=== PATIENT | male | born 1945 | race Caucasian/White ===

== ENCOUNTER 2017-08-27 06:29 | Inpatient (IN) ==
[2017-08-21 14:38] LABS: Appearance,Urine CLEAR; Bilirubin,Urine NEG (NEG); Color,Urine YELLOW; Glucose,Urine (UA) NEGATIVE (NEG); Leukocyte Esterase,Urine NEG /uL (NEG); Nitrate,Urine NEG (NEG); Protein,Urine NEG (NEG); Specific Gravity,Urine 1.021 (1.000-1.035); Urine Blood NEG mg/dL (<0.03)
[2017-08-21 17:43] LABS: Basophils # (Auto) 0 K/mcL (0.0-0.3); Basophils % (Auto) 0.6 % (0.0-2.0); Blood Urea Nitrogen 20 mg/dl (8-23); Eosinophils # (Auto) 0.1 K/mcL (0.0-0.7); Eosinophils % (Auto) 1.6 % (0.0-7.0); Granulocytes % (Auto) 60.4 % (38.0-78.0); Lymphocytes # (Auto) 1.2 K/mcL (1.5-4.8); Lymphocytes % (Auto) 27.1 % (15.5-49.0); Mean Cell Volume 93.5 fL (80.0-100.0); Mean Corpuscular HGB Conc 33.5 g/dL (31.0-36.0); Mean Corpuscular Hemoglobin 31.3 pg (26.0-34.0); Monocytes # (Auto) 0.5 K/mcL (0.1-0.9); Monocytes % (Auto) 10.3 % (1.0-12.0); Platelet Count 222 K/mcL (140-440); RBC 5.02 M/mcL (4.50-5.90); Red Cell Distribution Width 13.6 % (11.5-14.5)
[~2017-08-27 06:29] MED LIST: CELECOXIB 200 MG CAPSULE PO SCH; PREGABALIN 75 MG CAPSULE PO SCH; ceFAZolin 1 GM VIAL IV SCH; oxyCODONE 10 MG TAB.ER.12H PO SCH
[2017-08-27] MEDS ORDERED: GENTAMICIN SULFATE 800 MG/20 ML VIAL IR ONE (09:02)
--- NOTE | 2017-08-27 10:11 | Brief Operative Note ---
Date of procedure: 08/27/17 Pre-op diagnosis: right shoulder oa, biceps tendonitis Post-op diagnosis: same Procedure: right total shoulder arthroplasty, biceps tenodesis Grafts/Implants: Yes Anesthesia: GETA Complications: none Surgeon: Lefty Yin Cutter Apprentice Hand: Eleonora Cavazos Estimated blood loss (cc): 150 Specimens Removed/Pathology: none sent Condition: stable Disposition: PACU
--- NOTE | 2017-08-27 10:12 | Discharge Summary ---
Ortho Discharge - TSA - Patient Instructions Diet: Regular Diet Activity: non weight bearing Total Shoulder Protocol: Leave immobilizer in place except for bathing and ROM. Abduction pillow. Continue to wear sling until seen by physician. Codman Pendulum : These exercises use momentum produced by your body to move your shoulder joint. Bend your knees and shift your weight to your front leg, then back, allowing your arm to swing in the same directions. Using the same technique, alternately shift your weight between your right and left legs, allowing your arm to swing from side to side. These exercises are also performed in counterclockwise and clockwise circular motions. Typically these exercises are performed several times per day, for a set number repetitions or minutes, such as 20 times in a row or 5 minutes at a time. Dressing Care: May shower in 2 days - Follow Up Plan Follow Up Appointments: Eleonora Cavazos PA-C [Physician Hvac Designer] - 09/11/17 11:00 am Disposition: Home, Self-Care Prognosis: Good Rehab Potential: Good I certify that the patient requires SNF services: No Overall status at discharge: patient is progressing back to baseline
[2017-08-27] MEDS ORDERED: ONDANSETRON ODT 4 MG TABLET SL PRN (10:14)
[2017-08-27] MEDS ORDERED: POLYETHYLENE GLYCOL 3350 17 GM PACKET PO PRN (10:14)
[2017-08-27] MEDS ORDERED: BISACODYL 10 MG SUPP.RECT PR PRN (10:14)
[2017-08-27] MEDS ORDERED: TRANEXAMIC ACID 1,000 MG/10 ML VIAL IV ONE ×2 (10:14→11:04)
[2017-08-27] MEDS ORDERED: METHOCARBAMOL 750 MG TABLET PO PRN (10:14)
[2017-08-27] MEDS ORDERED: ONDANSETRON 4 MG/2 ML VIAL IV PRN ×2 (10:14→10:45)
[2017-08-27] MEDS ORDERED: BENZOCAINE/MENTHOL 1 LOZENGE PO PRN (10:14)
[2017-08-27] MEDS ORDERED: FLEETS ADULT ENEMA PR PRN (10:14)
[2017-08-27] MEDS ORDERED: HYDROmorphone 2 MG/ML SYRINGE IV PRN (10:14)
[2017-08-27] MEDS ORDERED: MAGNESIUM HYDROXIDE 30 ML ORAL.SUSP PO PRN (10:14)
[2017-08-27] MEDS ORDERED: PROMETHAZINE 25 MG/ML VIAL IV PRN (10:45)
[2017-08-27] MEDS ORDERED: IPRATROPIUM/ALBUTEROL 3 ML AMPUL.NEB NEB PRN (10:45)
[2017-08-27] MEDS ORDERED: MEPERIDINE 25 MG/ML SYRINGE IV PRN (10:45)
[2017-08-27] MEDS ORDERED: LACTATED RINGERS 1,000 ML IV SCH (10:45)
[2017-08-27] MEDS ORDERED: METHOCARBAMOL 1,000 MG/10 ML VIAL IV PRN (10:45)
[2017-08-27] MEDS: fentaNYL 100 MCG/2 ML VIAL IV PRN ×2 (10:50→11:07)
--- NOTE | 2017-08-27 10:51 | Operative Note ---
DATE OF OPERATION: 08/27/2017 PREOPERATIVE DIAGNOSIS: 1. Right shoulder osteoarthritis. 2. Right shoulder proximal biceps tendonitis. POSTOPERATIVE DIAGNOSIS: 1. Right shoulder osteoarthritis. 2. Right shoulder proximal biceps tendonitis. PROCEDURES: 1. Right total shoulder arthroplasty. 2. Right shoulder proximal biceps tenodesis soft tissue. SURGEON: Misti Yin M.D. UNIT AIDE SURGEON: Eleonora Cavazos PA-C ANESTHESIA: General. ESTIMATED BLOOD LOSS: 150 mL COMPLICATIONS: None noted. SPECIMENS REMOVED: None. DRAINS: None. IMPLANTS: [employer] anchor peg glenoid, Premieron X-linked polyethylene size 44, [employer] unite anatomic proximal body 135 degrees size 14 Porocoat, [employer] unite Porocat standard stem size 14 mm, [employer] unite eccentric humeral head size 48 x 21, DePuy CMW2 bone cement x2. INDICATIONS: The patient has had a longstanding history of worsening pain in the shoulder that has failed conservative treatment. Radiographs have confirmed advanced degenerative joint disease. After a long discussion about treatment options, the patient elected to proceed with a total shoulder arthroplasty. The risks and benefits were discussed with the patient in detail including, but not limited to, the risks of anesthesia, problems with the heart or lungs related to anesthesia, infection, compromise or injury to the nerves and blood vessels, deep venous thrombosis, pulmonary embolism, pneumonia, continued pain after surgery, worsening pain or symptoms after surgery, swelling, loss of motion, instability, fracture, arm length discrepancy, and need for repeat surgery. DESCRIPTION OF PROCEDURE: The patient was seen in the pre-anesthesia waiting room where all questions were answered and the correct side and site were identified and marked. The patient was transferred to the operating room and administered the anesthetic and given pre-operative antibiotics. A time-out was then called. The patient was placed in the modified beach chair position with all prominences well padded. The extremity was prepped and draped from the fingers up to the neck. A standard deltopectoral skin incision was created. Dissection was carried down to the deltopectoral groove and the cephalic vein was isolated medially and retracted laterally with the deltoid. Retractors were placed and the coracobrachialis was split up to the coracoacromial ligament allowing retraction of the conjoined tendon. We split the subscapularis 1 cm medial to the bicipital groove and extended the split into the rotator interval. This was tagged for later repair. The biceps was cut and a soft tissue tenodesis was performed into the anterior shoulder with #2 FiberWire. A capsular release was performed in a posterior subperiosteal direction along the humerus. The humeral head was then dislocated. Osteophytes were removed around the humeral neck and a capsular release was performed. Attention was then turned to the glenoid. Retractors were placed for optimal visualization and the labrum was excised in its entirety. A centralizing Steinmann pin was placed just into the posterior inferior quadrant in a standard fashion. We reamed over the pin to remove all the cartilage and get to a good base for the prosthesis. The drill was then placed over for the central peg. The glenoid was sized and surface was inspected to confirm conformity. The template base-plate was used to drill the three additional pegs, anchoring each with the anti-rotation peg. All bleeding was stopped with epinephrine soaked sponges. Next, we then cemented the anchor peg glenoid with DBX bone paste placed around the anchor peg and Palacos cement in the three additional peg holes. We allowed the cement to harden and checked the stability and placement of the glenoid. Attention was then turned back to the humerus. The humeral head was sized and version of the head was matched. We placed the guide evaluating the quadrants and drilled a pin through the center of the head exiting the lateral cortex of the proximal humerus. We then reamed the humeral head with appropriate depth. The bone quality was adequate. The humeral head trial was placed and fit appropriately. The cruciate punch was placed into the drilled canal. The press fit humeral prosthesis was impacted into place. A final check confirmed adequate motion, tension, and stability. We irrigated with 3 liters of antibiotic saline and closed the subscapularis with # 2 FiberWire. We irrigated again and closed the deltopectoral interval with several # 0 Vicryl figure of eight sutures. The subcutaneous layer was closed with 2-0 Vicryl and the skin was closed with 4-0 Monocryl in a subcuticular fashion. A sterile pressure dressing was applied and the patient was placed into an abduction sling. All needle and sponge counts were correct. The patient was transferred to the recovery room in stable condition. SAPNA:flor Job ID: [id number] Doc ID: [id number] Misti Yin MD
[2017-08-27] MEDS ORDERED: GLYCOPYRROLATE 0.2 MG/ML VIAL IV ONE (11:04)
[2017-08-27] MEDS ORDERED: KETAMINE 100 MG/ML ML IV ONE (11:04)
[2017-08-27] MEDS ORDERED: ONDANSETRON 4 MG/2 ML VIAL IV ONE (11:04)
[2017-08-27] MEDS ORDERED: LIDOCAINE HCL/PF 100 MG/5 ML SYRINGE IV ONE (11:04)
[2017-08-27] MEDS ORDERED: fentaNYL 100 MCG/2 ML VIAL IV ONE (11:04)
[2017-08-27] MEDS ORDERED: MIDAZOLAM 5 MG/5 ML VIAL IV ONE (11:04)
[2017-08-27] MEDS ORDERED: PROPOFOL 200 MG/20 ML VIAL IV ONE (11:04)
[2017-08-27] MEDS ORDERED: PHENYLEPHRINE 10 MG/ML VIAL IJ ONE (11:04)
[2017-08-27] MEDS ORDERED: SUCRALFATE 1 GM/10 ML ORAL.SUSP PO ONE (11:04)
--- NOTE | 2017-08-27 11:37 | XRay Report ---
CLINICAL INFORMATION: Postsurgical follow-up TECHNIQUE: AP internal and external rotation. Axillary view COMPARISON: None. FINDINGS: Status post right shoulder arthroplasty. Alignment is anatomic. IMPRESSION: Right shoulder arthroplasty as above Interpreted and Authenticated by: Lefty Lynn 08/27/17
[2017-08-27] MEDS: 0.9 % SODIUM CHLORIDE 1,000 ML IV SCH ×2 (11:50→19:26)
[2017-08-27] MEDS: ceFAZolin 1 GM VIAL IV SCH (16:06)
[2017-08-27] MEDS: 0.9 % SODIUM CHLORIDE 10 ML SYRINGE IV SCH ×2 (16:06→20:26)
[2017-08-27] MEDS: DOCUSATE SODIUM 100 MG CAPSULE PO SCH (19:26)
[2017-08-27] MEDS: HYDROcodone/APAP 10/325MG TABLET PO PRN (19:26)
[2017-08-27] MEDS: KETOROLAC 15 MG/ML VIAL IV PRN (19:26)
[2017-08-27] MEDS ORDERED: SENNOSIDES 1 TABLET PO SCH (21:00)
[2017-08-28] MEDS: ceFAZolin 1 GM VIAL IV SCH (00:30)
[2017-08-28] MEDS: HYDROcodone/APAP 10/325MG TABLET PO PRN ×3 (00:35→11:05)
[2017-08-28] MEDS: KETOROLAC 15 MG/ML VIAL IV PRN (01:26)
[2017-08-28] MEDS: 0.9 % SODIUM CHLORIDE 10 ML SYRINGE IV SCH (01:30)
[2017-08-28] MEDS: 0.9 % SODIUM CHLORIDE 1,000 ML IV SCH (04:13)
--- NOTE | 2017-08-28 06:59 | Orthopedic Progress Note ---
Subjective Patient information: Note initiated : 08/28/17 at 6:57 am Service Date, if different from initiated Date: [] Patient: Matthew Reagan 72 y/o M admitted on 08/27/17 for Right Total Shoulder Arthroplasty Poss Reverse, . Chief Complaint: [s/p right TSA Patient is POD #1 s/p right TSA. He reports minimal pain and offers no questions or concerns. He denies numbness and tingling in any extremity. He also denies calf pain, SOB, or chest pain.] Objective Vital signs: Vital Signs Temp Pulse Resp BP BP Pulse Ox 08/28/17 04:00 98.1 F 73 20 143/65 92 08/28/17 00:40 98.2 F 63 20 130/73 96 08/27/17 19:57 97.3 F 80 20 137/68 96 08/27/17 14:30 134/83 94 08/27/17 13:30 153/72 94 08/27/17 13:00 141/64 95 08/27/17 12:30 138/82 95 08/27/17 12:15 145/87 96 08/27/17 12:00 139/76 96 08/27/17 11:45 54 L 142/76 93 08/27/17 11:27 97.5 F 58 L 15 142/70 98 08/27/17 11:20 58 L 16 130/62 98 08/27/17 11:15 55 L 16 134/74 98 08/27/17 11:10 58 L 15 136/62 98 08/27/17 11:09 16 136/62 99 08/27/17 11:04 20 121/94 99 08/27/17 10:58 85 15 126/74 99 08/27/17 10:53 90 18 117/76 97 08/27/17 10:48 87 20 102/64 97 08/27/17 10:43 83 18 140/73 99 08/27/17 10:38 91 H 15 90/32 100 08/27/17 10:33 56 L 16 126/66 100 08/27/17 10:28 56 L 16 115/55 100 08/27/17 10:23 97.0 F 61 16 137/63 99 08/27/17 07:13 96.0 F L 16 156/95 97 Intake and Output 01/08/28/17 08/28/17 21:59 05:59 13:59 Intake Total 2110 / 2110 100 / 100 Output Total 650 / 650 400 / 400 Balance 1460 / 1460 -300 / -300 Intake: IV 950 / 950 Sodium Chloride 0.9% 1,000 ml @ 950 / 950 125 mls/hr IV .Q8H JAMES Rx#: [id number] Oral 1160 / 1160 100 / 100 Output: Void Amount 650 / 650 400 / 400 Other: Meal Dinner Percent of Meal Consumed 100% Feeding Ability Independent # Voids 1 1 Weight 203 lb 8 oz Intake & Output: Intake & Output 08/27/17 08/28/17 08/28/17 21:59 05:59 13:59 Intake Total 2110 / 2110 100 / 100 Output Total 650 / 650 400 / 400 Balance 1460 / 1460 -300 / -300 Weight 203 lb 8 oz Intake: IV 950 / 950 Sodium Chloride 0.9% 1,000 ml @ 950 / 950 125 mls/hr IV .Q8H JAMES Rx#: [id number] Oral 1160 / 1160 100 / 100 Output: Void Amount 650 / 650 400 / 400 Other: Meal Dinner Percent of Meal Consumed 100% Feeding Ability Independent # Voids 1 1 Incision: Yes healing, Yes clean and dry Incision clean and dry: Yes Dressing: Yes clean, Yes dry, Yes intact Weight bearing status: non (sling on at all times except as listed in instructions) Neurological exam IM: Yes alert, Yes oriented X3, Yes motor sensory intact, Yes neurovascular intact Extremities exam IM: No calf tenderness, Yes neurovascular intact - Periperhal Pulses Peripheral pulses: 2+: radial (L), radial (R) - Diagnostic Results Shoulder x-ray: image reviewed (3 views of right shoulder reveal total arthroplasty in good alignment. No fractures are identified. No other acute abnormalities are identified.) - Labs CBC & BMP: 08/28/17 05:00 08/21/17 12:25 Labs: Orthopedic Labs 08/21/17 12:25 PT 13.3 INR 1.0 08/28/17 08/21/17 05:00 12:25 Hgb 13.2 L 15.7 Hct 38.9 L 46.9 Assessment and Plan (1) Osteoarthritis of shoulder Assessment: POD #1 s/p right TSA Plan: -d/c to home today -pain control -sling at all times -may change dressing/shower beginning tomorrow -dermabond/wound precautions discussed -f/u in 2 weeks Status: Acute
[2017-08-28] MEDS: DOCUSATE SODIUM 100 MG CAPSULE PO SCH (08:44)
[2017-08-28] MEDS ORDERED: GLUCOSAMINE/CHONDROITIN SULF A 1 CAP CAPSULE PO SCH (09:00)
[2017-08-28] MEDS ORDERED: UBIDECARENONE 200 MG PO SCH (09:00)
[2017-08-28] MEDS ORDERED: FISH OIL 1,000 MG CAPSULE PO SCH (09:00)
[2017-08-28] MEDS ORDERED: ASPIRIN 81 MG TAB.CHEW PO SCH (09:00)
== END 2017-08-28 11:05 | disposition home or self-care (01) | DRG 483 ==
LOC: MEDSUR 06:29
PROVIDERS: ADMIT Orthopaedic Surgery Sports Medicine; ATTEND Orthopaedic Surgery Sports Medicine